=== PATIENT | female | born 1990 | race Two or more races ===

== ENCOUNTER 2024-01-04 10:55 | Inpatient (IN) | payer MEDICAID ==
[~2024-01-04] VITALS: Ht 165.1 cm; Wt 78.4 kg
[~2024-01-04 10:55] MED LIST: CEPH250C PO; IBU600T PO
[2024-01-04] MEDS: ACETAMINOPHEN 325 MG TAB PO ONE (14:41)
[2024-01-04] MEDS ORDERED: ACETAMINOPHEN 325 MG TAB PO PRN (15:00)
[2024-01-04] MEDS ORDERED: ONDANSETRON HCL 4 MG/2 ML VIAL IV PRN (15:00)
[2024-01-04] MEDS ORDERED: LACTATED RINGER'S 1,000 ML IV ONE (15:00)
[2024-01-04] MEDS ORDERED: PRENATAL VITAMIN TAB PO SCH (15:00)
[2024-01-04] MEDS ORDERED: hydrALAZINE HCL 20 MG/ML VL IV PRN (15:15)
[2024-01-04 15:55] VITALS: RESP 20; O2SAT 98
[2024-01-04 16:00] VITALS: BP 140/91; PULSE 106; RESP 18; TEMP 98.2; O2SAT 98
[2024-01-04 16:04] LABS: Basophils # (auto) 0 10 ^3/uL (0-0.2); Basophils % (auto) 0.3 % (0.0-2.0); Eosinophils # (auto) 0 10 ^3/uL (0-0.8); Eosinophils % (auto) 0.5 % (0.0-7.0); Hematocrit 36.4 % (36.0-46.0); Hemoglobin 12.8 g/dL (12.2-16.2); Lymphocytes # (auto) 1.5 10 ^3/uL (0.4-5.4); Lymphocytes % (auto) 14.8 % (10.0-50.0); Mean Corpuscular Hemoglobin 33.8 pg (28.0-32.0); Mean Corpuscular Hgb Conc. 35.1 g/dL (32.0-36.0); Mean Corpuscular Volume 96.4 fL (80.0-100.0); Monocytes # (auto) 0.5 10 ^3/uL (0-1.3); Monocytes % (auto) 4.9 % (0.0-12.0); Neutrophils # (auto) 8.3 10 ^3/uL (1.6-8.6); Neutrophils % (auto) 79.5 % (37.0-80.0); Nucleated Red Blood Cells % 0.1 %; Platelet Count (auto) 218 10^3/uL (140-450); Red Blood Cells 3.77 10^6/uL (4.0-5.20); Red Cell Distribution Width 12.4 % (11.8-14.3); White Blood Cell 10.4 10^3/uL (4.4-10.8)
[2024-01-04 16:33] LABS: Albumin 4.2 g/dL (3.2-4.8); Alkaline Phosphatase 80 U/L (46-116); Anion Gap 11 (5-15); Aspartate Aminotransferase 12 U/L (13-40); BUN/Creatinine Ratio 8.8 (10.0-20.0); Bilirubin, Total 0.3 mg/dL (0.2-1.0); Blood Urea Nitrogen 6 mg/dL (9-23); Calcium 9.1 mg/dL (8.7-10.4); Carbon Dioxide 19 mmol/L (20-30); Chloride 106 mmol/L (98-107); Glucose 97 mg/dL (74-106); Potassium 4.1 mmol/L (3.5-5.1); Sodium 136 mmol/L (136-145); Total Protein 6.9 g/dL (5.7-8.2)
[2024-01-04 16:40] LABS: Alanine Aminotransferase < 9 U/L (7-40)
[2024-01-04] MEDS ORDERED: SODIUM CHLOR 0.9% PF (SALINE LOCK) 10ML VIAL/SYR IV SCH (22:00)
[2024-01-05] MEDS ORDERED: ENOXAPARIN SOD 40 MG/0.4 ML SYRINGE SC SCH (10:00)
== END 2024-01-04 17:00 | disposition left against medical advice (07) | DRG 566 ==
LOC: ER 10:55 → OVERFLOW 15:00
PROVIDERS: ADMIT Internal Medicine; ATTEND Internal Medicine
DX: O26.892 Other specified pregnancy related conditions, second trimester (principal); M43.6 Torticollis; M79.651 Pain in right thigh; Z53.29 Procedure and treatment not carried out because of patient's decision for other reasons; Z3A.27 27 weeks gestation of pregnancy; Z87.442 Personal history of urinary calculi; Y08.89XA Assault by other specified means, initial encounter; Y93.01 Activity, walking, marching and hiking; Y92.89 Other specified places as the place of occurrence of the external cause; Y99.8 Other external cause status
CPT/HCPCS: 36415; 72040; 72148; 76805; 80053; 83605; 85025; G0378